=== PATIENT | male | born 2000 | race African-American/Black ===

== ENCOUNTER 2024-01-16 20:07 | Emergency (ER) | payer MEDICAID ==
[~2024-01-16] VITALS: Ht 177.8 cm; Wt 70.7 kg
[2024-01-16 20:58] VITALS: BP 138/83; TEMP 98.2
[2024-01-16] MEDS: PREDNISONE 20MG TABLET PO ONE (21:33)
[2024-01-16 21:57] VITALS: PULSE 96; RESP 18; O2SAT 97
[2024-01-16] MEDS: ALBUTEROL (0.083%) 2.5MG/3ML NEB HHN ONE (21:57)
[2024-01-16] MEDS ORDERED: ALBU18HF2 IH (23:04)
[2024-01-16] MEDS ORDERED: P50 MT (23:04)
== END 2024-01-16 23:08 | disposition home or self-care (01) ==
LOC: ER 20:07
DX: B34.9 Viral infection, unspecified (principal); Z20.822 Contact with and (suspected) exposure to COVID-19
CPT/HCPCS: 87804 ×2; 71045; 94640; 99284; 87426; J7512; Z7610 ×3

== ENCOUNTER 2024-06-17 01:56 | Emergency (ER) | payer MEDICAID ==
[~2024-06-17] VITALS: Ht 172.7 cm; Wt 75.0 kg
[~2024-06-17 01:56] MED LIST: ALBU18HF2 IH; P50 MT
[2024-06-17 02:14] VITALS: O2SAT 100
[2024-06-17 03:18] LABS: BASOPHILS % 1.1 % (0.0-2.0); DIFFERENTIAL COMMENT 0; EOSINOPHILS % 7.7 % (0.0-5.0); HEMATOCRIT. 42.2 % (42.0-52.0); LYMPHOCYTES % 20.9 % (20.0-50.0); MEAN CORPUSCULAR HEMOGLOBIN 21.9 pg (28.0-32.0); MEAN CORPUSCULAR HGB CONC 30.9 g/dL (31.0-37.0); MEAN PLATELET VOLUME 8.5 fl (7.4-10.4); MONOCYTES % 9.4 % (2.0-8.0); NEUTROPHILS % 60.9 % (40.0-76.0); PLATELET 212 x1000/uL (130-400); RED BLOOD CELL COUNT 5.95 mill/uL (4.7-6.1); RED CELL DISTRIBUTION WIDTH 16.3 % (11.6-14.6); WHITE BLOOD COUNT 7.5 x1000/uL (4.5-11.0)
[2024-06-17 03:27] LABS: CHLORIDE 107 mEq/L (98-107); SODIUM 138 mEq/L (136-145)
[2024-06-17 03:28] LABS: CARBON DIOXIDE 25 mEq/L (21-32)
[2024-06-17 03:33] LABS: CREATININE 1.2 mg/dL (0.6-1.3); GLUCOSE 99 mg/dL (70-105); UREA NITROGEN BLOOD 14 mg/dL (9-23)
[2024-06-17 03:38] LABS: TROPONIN I HIGH SENSITIVITY < 4 ng/L (3.0-53)
[2024-06-17] MEDS: NAPROXEN 375MG TABLET PO ONE (03:39)
[2024-06-17] MEDS ORDERED: NAPR-1176 MT (04:18)
[2024-06-17 05:06] VITALS: BP 126/66; PULSE 66; RESP 18; TEMP 98.4; O2SAT 100
== END 2024-06-17 05:10 | disposition home or self-care (01) ==
LOC: ER 01:56
DX: R07.9 Chest pain, unspecified (principal)
CPT/HCPCS: 36415; 71045; 80048; 84484; 85025; 85379; 99284

== ENCOUNTER 2025-04-29 13:30 | Emergency (ER) | payer MEDICAID ==
[~2025-04-29] VITALS: Ht 175.3 cm; Wt 86.0 kg
[~2025-04-29 13:30] MED LIST changes: +NAPR-1176 MT
[2025-04-29 13:53] VITALS: TEMP 36.8; O2SAT 97
[2025-04-29] MEDS: IBUPROFEN 400MG TABLET PO ONE (15:57)
[2025-04-29 16:00] VITALS: BP 131/88; PULSE 65; RESP 18; O2SAT 100
== END 2025-04-29 16:04 | disposition home or self-care (01) ==
LOC: ER 13:30
DX: M21.41 Flat foot [pes planus] (acquired), right foot (principal); M21.42 Flat foot [pes planus] (acquired), left foot; Z79.1 Long term (current) use of non-steroidal anti-inflammatories (NSAID)
CPT/HCPCS: 99282